=== PATIENT | female | born 1955 | race Hispanic/Latino ===

== ENCOUNTER 2025-06-17 06:00 | Day surgery (SDC) | payer MEDICARE, MEDICAID ==
[~2025-06-17] VITALS: Ht 160 cm; Wt 104.3 kg
[2025-06-17] VITALS (11 sets, daily range): BP systolic 98–136; BP diastolic 50–60; PULSE 59–72; RESP 13–18; TEMP 97.3–97.7
[2025-06-17] MEDS: 0.9%NACL 1000ML 1,000 ML IV ONE (06:57)
== END 2025-06-17 08:59 | disposition home or self-care (01) ==
LOC: DAH 06:00
PROVIDERS: ATTEND Internal Medicine Gastroenterology
DX: R12 Heartburn (principal); K29.50 Unspecified chronic gastritis without bleeding; K22.89 Other specified disease of esophagus; K31.89 Other diseases of stomach and duodenum; R13.10 Dysphagia, unspecified; J44.9 Chronic obstructive pulmonary disease, unspecified; G47.33 Obstructive sleep apnea (adult) (pediatric); F41.9 Anxiety disorder, unspecified; F32.A Depression, unspecified; M19.90 Unspecified osteoarthritis, unspecified site; R10.30 Lower abdominal pain, unspecified; R14.0 Abdominal distension (gaseous); I10 Essential (primary) hypertension; E78.5 Hyperlipidemia, unspecified; Z99.89 Dependence on other enabling machines and devices; Z86.73 Personal history of transient ischemic attack (TIA), and cerebral infarction without residual deficits; Z79.82 Long term (current) use of aspirin; Z90.710 Acquired absence of both cervix and uterus; Z90.49 Acquired absence of other specified parts of digestive tract; Z79.899 Other long term (current) drug therapy
CPT/HCPCS: 43239; J7030; J2704; A4620; A4215 ×2; A4223; A4222; A4221; A4663; A4606; J3490